=== PATIENT | female | born 1990 | race African-American/Black ===

== ENCOUNTER 2020-02-13 07:46 | Emergency (ER) | payer OTHER ==
[~2020-02-13] VITALS: Ht 172.7 cm; Wt 82.0 kg
[2020-02-13] MEDS ORDERED: IBUPROFEN 600MG TABLET PO ONE (08:30)
[2020-02-13 09:36] VITALS: BP 168/87
== END 2020-02-13 09:37 | disposition home or self-care (01) ==
LOC: ER 07:46
DX: S40.022A Contusion of left upper arm, initial encounter (principal); V43.62XA Car passenger injured in collision with other type car in traffic accident, initial encounter; Y93.89 Activity, other specified; Y92.488 Other paved roadways as the place of occurrence of the external cause
CPT/HCPCS: 73060; 73080; 93005; 99284